=== PATIENT | female | born 1945 | race Two or more races ===

== ENCOUNTER → 2021-04-19 | Outpatient (CLI) | payer MEDICARE, OTHER | LOC: RAD 15:33 | DX: M79.605 Pain in left leg (principal); M79.604 Pain in right leg; R60.9 Edema, unspecified | CPT/HCPCS: 93970 ==

== ENCOUNTER → 2022-05-03 | Outpatient (CLI) | payer MEDICARE, OTHER | LOC: DX 11:01 | DX: Z01.818 Encounter for other preprocedural examination (principal); H25.13 Age-related nuclear cataract, bilateral; M25.562 Pain in left knee; M25.561 Pain in right knee | CPT/HCPCS: 93005 ==

== ENCOUNTER → 2022-05-07 | Outpatient (CLI) | payer MEDICARE, OTHER | LOC: CARD 08:32 | DX: Z01.818 Encounter for other preprocedural examination (principal); H25.13 Age-related nuclear cataract, bilateral; M25.562 Pain in left knee; M25.561 Pain in right knee; M79.605 Pain in left leg; M79.604 Pain in right leg | CPT/HCPCS: 93925 ==

== ENCOUNTER → 2023-10-21 | Outpatient (REF) | payer MEDICARE, OTHER | LOC: RAD 09:51 | PROVIDERS: ATTEND Internal Medicine Pulmonary Disease | DX: R05.9 Cough, unspecified (principal); U09.9 Post COVID-19 condition, unspecified | CPT/HCPCS: 71046 ==

== ENCOUNTER → 2023-11-26 | Outpatient (REF) | payer MEDICARE, OTHER | LOC: LAB 11-25 11:54 | PROVIDERS: ATTEND Internal Medicine Pulmonary Disease | DX: R05.3 Chronic cough (principal) | CPT/HCPCS: 36415; 82785; 86001; 86003; 87070; 87205; 89190 ==

== ENCOUNTER → 2024-08-12 | Outpatient (REF) | payer MEDICARE, OTHER ==
[~2024-08-12] MED LIST: MUCINEX DM ER1 EAC1 PO; XOFLUZA40 MG PO
[2024-08-12 11:24] LABS: ALANINE AMINOTRANSFERASE 40 IU/L (0-55); ALBUMIN 4.2 g/dL (3.5-5.0); ALBUMIN/GLOBULIN RATIO 1.1 (0.8-2.0); BILIRUBIN,TOTAL 1.1 mg/dL (0.2-1.2); BLOOD UREA NITROGEN 11 mg/dL (7-26); BUN/CREATININE RATIO 15 (6-25); CALCIUM 9.4 mg/dL (8.4-10.2); CARBON DIOXIDE 25 mmol/L (22-29); CHLORIDE 104 mmol/L (98-107); CHOL/HDL RATIO 3.3 (3.0-3.6); CHOLESTEROL 238 MD/DL (0-199); CREATININE, SERUM 0.73 mg/dL (0.57-1.11); EST GLOMERULAR FILTRATION RATE 84 ML/MIN (>=60); GLUCOSE 106 mg/dL (74-118); HDL CHOLESTEROL 72 MG/DL (40-60); LDL CHOLESTEROL 138 MG/DL (60-130); SODIUM 139 mmol/L (136-145); TOTAL PROTEIN 8.1 g/dL (6.5-8.1); TRIGLYCERIDES 139 MG/DL (0-149)
[2024-08-12 11:44] LABS: FREE T4 (FREE THYROXINE) 1.08 ng/dL (0.8-1.8); THYROID STIMULATING HORMONE 1.546 uIU/mL (0.350-4.940)
[2024-08-12 11:51] LABS: ALKALINE PHOSPHATASE 118 IU/L (40-150)
== END ==
LOC: LAB 09:25
PROVIDERS: ATTEND Internal Medicine
DX: Z00.00 Encounter for general adult medical examination without abnormal findings (principal); D59.12 Cold autoimmune hemolytic anemia
CPT/HCPCS: 36415; 80053; 80061; 82607; 83036; 84439; 84443

== ENCOUNTER → 2024-11-11 | Outpatient (REF) | payer MEDICARE, OTHER | LOC: RAD 15:34 | PROVIDERS: ATTEND Internal Medicine | DX: M54.2 Cervicalgia (principal); M54.12 Radiculopathy, cervical region | CPT/HCPCS: 72040; 72100; 73522 ==

== ENCOUNTER → 2025-02-14 | Outpatient (REF) | payer MEDICARE, OTHER | LOC: MRI 11:59 | PROVIDERS: ATTEND Internal Medicine | DX: M54.12 Radiculopathy, cervical region (principal); M54.6 Pain in thoracic spine; M47.816 Spondylosis without myelopathy or radiculopathy, lumbar region | CPT/HCPCS: 72141; 72146 ==

== ENCOUNTER → 2025-03-22 | Outpatient (REF) | payer MEDICARE, OTHER | LOC: RAD 09:33 | PROVIDERS: ATTEND Surgery | DX: R07.89 Other chest pain (principal) | CPT/HCPCS: 71046; 71101 ==